=== PATIENT | female | born 1995 | race Caucasian/White ===

== ENCOUNTER → 2016-10-26 | Outpatient (CLI) | payer OTHER ==
[~2016-10-26] MED LIST: BCPILLS PO; ESOM1CAP34 PO; NORGTAB34; ONDA4TAB46 PO
--- NOTE | 2016-10-26 09:42 | DIAGNOSTIC IMAGING REPORT ---
GI W/AIR SMALL BOWEL ROUTINE CLINICAL HISTORY: R11.2 Nausea with vomiting, [id number] COMPARISON STUDY: Abdomen and pelvis CT 10/08/2014. FLUOROSCOPY TIME: 2.9 minutes.. 31 images. FINDINGS: The patient swallowed barium without difficulty. The esophagus is normal in course, caliber, motility. No hiatus hernia. Severe gastroesophageal reflux. No gastric ulcerations. The duodenal bulb and duodenal C sweep are within normal limits. Additional fluoroscopic spot and overhead images of the small bowel were obtained. Contrast reached the colon at the 1 hour time interval. Terminal ileum is normal distensible. Small bowel is normal in course and caliber. No evidence for bowel obstruction. IMPRESSION: 1. Severe gastroesophageal reflux. 2. Normal small bowel follow-through. Electronically signed by: Jace Egan M.D. 10/26/2016 9:41 AM Dictated Date/Time: 10/26/2016 9:38 AM
== END | disposition home or self-care (01) ==
LOC: C.RAD 08:01
PROVIDERS: ATTEND Registered Nurse
DX: R11.2 Nausea with vomiting, unspecified (principal); K21.9 Gastro-esophageal reflux disease without esophagitis

== ENCOUNTER 2017-04-05 15:04 | Emergency (ER) | payer OTHER ==
[~2017-04-05] VITALS: Ht 160 cm; Wt 81.1 kg
[~2017-04-05 15:04] MED LIST changes: -ESOM1CAP34 PO; -NORGTAB34
[2017-04-05 15:06] VITALS: Ht 160 cm; Wt 81.1 kg
[2017-04-05] MEDS ORDERED: SODIUM CHLORIDE 0.9% 1000ML 1,000 ML IV STA (15:34)
[2017-04-05] MEDS ORDERED: ONDANSETRON INJ 2 MG/ML 2 ML VIAL IV STA (15:34)
[2017-04-05] MEDS ORDERED: MoRPHine SULFATE 10 MG/ML CARP/VIAL IV STA (15:34)
[2017-04-05 16:17] LABS: COMPLETE YES; HEMATOCRIT 38.1 % (37-47); IG% 0.1 %; LYMPH % 15.1 %; LYMPH ABS # 1.06 K/uL (1.2-3.4); MEAN CELL VOLUME 84.7 fL (80-100); MEAN CORPUSCULAR HEMOGLOBIN 29.1 pg (25-34); MEAN CORPUSCULAR HGB CONC 34.4 g/dl (32-36); MEAN PLATELET VOLUME 9.5 fL (7.4-10.4); MONO % 4.9 %; NEUT % 78.9 %; PLATELET COUNT 260 K/uL (130-400); WHITE BLOOD COUNT 7.01 K/uL (4.8-10.8)
[2017-04-05 16:18] LABS: URINE APPEARANCE CLEAR (CLEAR); URINE BILIRUBIN NEG (NEG); URINE COLOR YELLOW; URINE NITRITE NEG (NEG); URINE PH 5.5 (4.5-7.5); URINE SPECIFIC GRAVITY 1.022 (1.000-1.030); UROBILINOGEN NEG (NEG)
[2017-04-05 16:29] LABS: MANUAL MICROSCOPIC REQUIRED? NO; REVIEW REQ? NO
--- NOTE | 2017-04-05 16:42 | DIAGNOSTIC IMAGING REPORT ---
GALLBLADDER-ABD LIMITED HISTORY: 21 years-old Female ABDOMINAL PAIN/GI COMPARISON: Gallbladder ultrasound 10/05/2015 TECHNIQUE: Multiple real-time sonography images of the abdominal right upper quadrant were obtained assessing grayscale appearance and color flow FINDINGS: Pancreatic head is slightly obscured by bowel gas. The imaged portions of the pancreas are unremarkable. Liver is within normal limits without focal mass identified. Common bile duct measures 0.4 cm. No biliary ductal dilation is seen. Gallbladder is unremarkable without cholelithiasis or sonographic evidence of acute cholecystitis. Imaged right kidney is unremarkable. IMPRESSION: Unremarkable right upper quadrant ultrasound. No evidence of cholelithiasis or acute cholecystitis. The above report was generated using voice recognition software. It may contain grammatical, syntax or spelling errors. Electronically signed by: John De Oliveira M.D. 04/05/2017 4:41 PM Dictated Date/Time: 04/05/2017 4:40 PM
[2017-04-05 16:51] LABS: POTASSIUM 4.6 mmol/L (3.5-5.1)
[2017-04-05 16:52] LABS: CALCIUM 9.1 mg/dl (8.5-10.1); CREATININE 0.82 mg/dl (0.60-1.20)
--- NOTE | 2017-04-05 16:53 | DIAGNOSTIC IMAGING REPORT ---
CHEST 2 VIEWS ROUTINE HISTORY: 21 years-old Female acute diffuse abdominal pain with nausea and vomiting COMPARISON: None available TECHNIQUE: Frontal and lateral views of the chest FINDINGS: Cardiomediastinal and hilar silhouettes are within normal limits. There is no pneumothorax, pleural effusion, focal airspace consolidation or overt pulmonary edema. The bones appear grossly intact. IMPRESSION: Normal chest radiographs. The above report was generated using voice recognition software. It may contain grammatical, syntax or spelling errors. Electronically signed by: John De Oliveira M.D. 04/05/2017 4:52 PM Dictated Date/Time: 04/05/2017 4:50 PM
[2017-04-05] MEDS ORDERED: ESOM1CAP34 PO (16:55)
[2017-04-05] MEDS ORDERED: NORGTAB34 (16:55)
[2017-04-05] MEDS ORDERED: ONDA4TAB46 PO (17:15)
[2017-04-05 17:28] VITALS: BP 106/67; PULSE 60; TEMP 36.8; O2SAT 99
--- NOTE | 2017-04-07 10:30 | EMERGENCY ROOM VISIT NOTE ---
ED Visit Note First contact with patient: 15:12 Chief Complaint: Upper abdominal pain. History of Present Illness: Ms. Kwong is a 21 year-old female who ambulates into the ED accompanied by her mother complaining of epigastric and right quadrant abdominal pain. Historically patient and mother reports she has been having ongoing severe upper abdominal pain for approximately 5-6 months. She has been in this ED previous with no cause identified. She has been seen by gastroenterology and had an EGD and it was felt most likely related to severe GERD and although she has been treated she has not had full resolution of symptoms. Patient reports a acute onset of epigastric and right upper quadrant abdominal pain that started approximately 10 hours ago. Since that time the pain has been constant but has waxed and waned in intensity. The pain is currently described as sharp. The pain is nonradiating. She rates her discomfort 7/10. She has not identified any aggravating or alleviating factors related to the pain. She reports she has not taken any medications for pain but she has taken her GERD medications; she does report she did take her Zofran for nausea and vomiting and had no relief. Associated with her pain she has been nauseated and vomited and she has had chills but no jareth fever. Patient denies sweats, skin eruptions, skin color changes, upper respiratory tract symptoms, shortness of breath, chest pain, nausea, vomiting, diarrhea, constipation, rectal bleeding, black/tarry stools, urinary symptoms, hematuria, vaginal bleeding, vaginal discharge, back/flank pain. Review of Systems: As noted above in history of present illness. All body systems were reviewed and found to be negative as noted above. Past Medical History: As previously noted and status post tonsillectomy, adenoidectomy. Current Medications: Medications Dose Route/Sig Max Daily Dose Days Date Category Zofran (Ondansetron HCl) 4 Mg Tab 4 Mg PO Q6H PRN 04/05/17 Rx Esomeprazole Magnesium 40 Mg Cap 40 Mg PO DPT 04/05/17 Reported Trinessa (Norgestimate-Ethinyl Estradiol) 1 Tab Tab 04/05/17 Reported Zofran (Ondansetron HCl) 4 Mg Tab 4 Mg PO UD PRN 10/07/14 Reported Allergies to Medications: Penicillin. Social History: Patient is currently employed; she feels safe in her home environment; she denies tobacco and alcohol use. Physical Examination: Vital Signs: Date Time Temp Pulse Resp B/P (MAP) Pulse Ox O2 Delivery O2 Flow Rate FiO2 04/05/17 17:28 36.8 60 15 106/67 99 04/05/17 17:08 60 15 106/67 99 Room Air 04/05/17 16:11 74 04/05/17 15:06 36.8 75 18 134/84 96 Room Air GENERAL: 21-year-old female in moderate distress due to pain, nontoxic-appearing , afebrile and hemodynamically stable. NEUROLOGICAL: Awake, alert and oriented to person, place and time. Answering questions appropriately and following commands. Normal gait. Good hand eye coordination. SKIN: Warm, dry and pink. No soft tissue eruptions or trauma noted. HEENT: Atraumatic and normocephalic. PERRL. Sclera white and conjunctiva pink. Oral cavity moist and pink. Pharynx is nonerythematous or edematous. Speech normal. No lymphadenopathy. Trachea midline. No jugular venous distention. BACK: No tenderness over the bony spine. No CVA tenderness. THORAX: Lungs sounds are clear to auscultation and equal bilaterally with symmetrical chest wall. No wheezing, rales or rhonchi. No crepitus, tenderness , subcutaneous air or deformities noted. HEART: Regular rate and rhythm. No gallops, rubs or murmurs are appreciated. ABDOMEN: Flat and soft with mild tenderness in the epigastrium and moderate tenderness in the right upper quadrant with minimal guarding. Decreased bowel sounds in all quadrants. No rigidity or organomegaly. EXTREMITIES: Moves all extremities well on command and with purpose. All distal neurovascular statuses are intact and equal bilaterally. ED Course: Patient is assessed as noted above. Laboratory Testing: Test 04/05/17 15:15 04/05/17 15:45 Range/Units Urine Color YELLOW Urine Appearance CLEAR CLEAR Urine pH 5.5 4.5-7.5 Urine Specific Stella 1.022 1.000-1.030 Urine Protein NEG NEG Urine Glucose (UA) NEG NEG Urine Ketones NEG NEG Urine Occult Blood NEG NEG Urine Nitrite NEG NEG Urine Bilirubin NEG NEG Urine Urobilinogen NEG NEG Urine Leukocyte Esterase NEG NEG White Blood Count 7.01 4.8-10.8 K/uL Red Blood Count 4.50 4.2-5.4 M/uL Hemoglobin 13.1 12.0-16.0 g/dL Hematocrit 38.1 37-47 % Mean Corpuscular Volume 84.7 80-100 fL Mean Corpuscular Hemoglobin 29.1 25-34 pg Mean Corpuscular Hemoglobin Concent 34.4 32-36 g/dl Platelet Count 260 130-400 K/uL Mean Platelet Volume 9.5 7.4-10.4 fL Neutrophils (%) (Auto) 78.9 % Lymphocytes (%) (Auto) 15.1 % Monocytes (%) (Auto) 4.9 % Eosinophils (%) (Auto) 1.0 % Basophils (%) (Auto) 0.0 % Neutrophils # (Auto) 5.53 1.4-6.5 K/uL Lymphocytes # (Auto) 1.06 1.2-3.4 K/uL Monocytes # (Auto) 0.34 0.11-0.59 K/uL Eosinophils # (Auto) 0.07 0-0.5 K/uL Basophils # (Auto) 0.00 0-0.2 K/uL RDW Standard Deviation 36.6 36.4-46.3 fL RDW Coefficient of Variation 11.9 11.5-14.5 % Immature Granulocyte % (Auto) 0.1 % Immature Granulocyte # (Auto) 0.01 0.00-0.02 K/uL Sodium Level 138 136-145 mmol/L Potassium Level 4.6 3.5-5.1 mmol/L Chloride Level 107 98-107 mmol/L Carbon Dioxide Level 24 21-32 mmol/L Anion Gap 7.0 3-11 mmol/L Blood Urea Nitrogen 6 7-18 mg/dl Creatinine 0.82 0.60-1.20 mg/dl Est Creatinine Clear Calc Drug Dose 110.3 ml/min Estimated GFR () 119.4 Estimated GFR (Non- 103.0 BUN/Creatinine Ratio 7.0 10-20 Random Glucose 82 70-99 mg/dl Calcium Level 9.1 8.5-10.1 mg/dl Total Bilirubin 0.8 0.2-1 mg/dl Direct Bilirubin 0.1 0-0.2 mg/dl Aspartate Amino Transf (AST/SGOT) 14 15-37 U/L Alanine Aminotransferase (ALT/SGPT) 16 12-78 U/L Alkaline Phosphatase 76 45-117 U/L Total Protein 7.1 6.4-8.2 gm/dl Albumin 3.5 3.4-5.0 gm/dl Lipase 122 73-393 U/L Gallbladder Ultrasound: Was reviewed by myself and read by the radiologist and shows an unremarkable ultrasound with no evidence of acute cholecystitis, cholelithiasis, ductal dilatation, liver, pancreatic head and kidney that were unremarkable. Chest X-Rays: Were read by myself and shows no acute infiltrates, effusions or pneumothorax. Normal heart silhouette and bony anatomy. No free air under the diaphragm. Patient was hydrated with normal saline and she received 6 mg of morphine IV for pain and 4 mg of Zofran IV for nausea. Patient was reassessed multiple times during her stay in the emergency department. Patient was offered additional pain medications and refused. Patient's case was reviewed with Dr. Vela; we agreed on diagnostic approach , treatment, disposition and plan. Patient and mother were educated about today's findings and instructed on her treatment plan; they verbalizes understanding and agreement with this plan. Clinical Impression: Upper abdominal pain. Nausea and vomiting. Decision-Making: Initially my differential diagnosis I considered acute cholecystitis, biliary colic, kidney stone, pyelonephritis, hepatitis, pancreatitis, gastritis, GERD exacerbation and other causes. Disposition: Patient was discharged home in stable condition accompanied by her mother; prior to departure she was reassessed and subjectively reported she was feeling better and rated her discomfort 5/10. Plan: Patient was encouraged to continue her current medications as prescribed. Patient was encouraged to use 650 mg of acetaminophen every 6 hours as needed for pain and her prescription for Zofran. Patient was encouraged to stay well-hydrated with increased clear fluids. Patient was encouraged to avoid stomach irritants. Patient was encouraged to follow-up with her PCP, her hydraulic strainer operator and see if they felt surgery should be considered for evaluation of her pain. Patient was encouraged return the ED for worsening/uncontrolled pain, worsening vomiting, bloody vomitus, fevers or any new/concerning symptoms.
== END 2017-04-05 17:29 | disposition home or self-care (01) ==
LOC: C.EDB 15:06 → C.EDA 17:29
DX: R10.11 Right upper quadrant pain (principal); R10.13 Epigastric pain; R11.2 Nausea with vomiting, unspecified; Z79.3 Long term (current) use of hormonal contraceptives

== ENCOUNTER → 2017-08-21 | Outpatient (CLI) | payer OTHER ==
[~2017-08-21] MED LIST changes: -BCPILLS PO; +ESOM1CAP34 PO; +NORGTAB34
== END | disposition home or self-care (01) ==
LOC: C.LABSPEC 13:32
PROVIDERS: ATTEND Obstetrics & Gynecology
DX: Z01.419 Encounter for gynecological examination (general) (routine) without abnormal findings (principal)

== ENCOUNTER 2024-07-09 08:24 | Inpatient (IN) ==
[2024-07-09] MEDS ORDERED: NON-FORMULARY MEDICATION (Doxylamine Succinate [Unisom (Doxylamine)] 25 mg Tablet) PO PRN (08:41)
--- NOTE | 2024-07-09 08:50 | History & Physical Report ---
Date of Service July 09, 2024 Assessment & Plan (1) Encounter for pre-operative examination: (2) Pulmonary embolism: (3) History of 2 sections: (4) Uterine contractions at greater than 20 weeks of gestation: Plan: patient is a 28-year-old -0-1-2 at 39 weeks of gestation with history of prior 2 C-sections coming in with regular painful contractions, and early labor, Vital signs stable afebrile, heart rate reassuring, h/o PE, on heparin, last dose last night, Plan to admit, monitor, labs, start IV fluids, prepare for repeat , SCD's, Start Lovenox postop Patient understands C section is a major surgery, with risks including but not limited to bleeding , infection, injury to surrounding organs like bowels, bladder, ureters, adhesions, scarring, wound infection, blood cloths in legs/ lungs, longer recovery. All questions were answered. She signed an informed consent. History of Present Illness Primary Care Provider: HALLIE Benitez Patient is a 28-year-old -0-1-2 at 39 weeks of gestation who has been feeling contractions since last night, she woke up with them around 3 AM when they were every 5 minutes and then they became every 3 minutes since 5 AM. They have been very uncomfortable and she has to stop talking when they come. She denies leakage of fluid or vaginal bleeding. She reports good movements. 1. History of 2 prior C-sections due to arrest of descent and macrosomia, first baby was 9 pounds 13 ounces and the second baby was a repeat and 9 pound 8 ounces, she is scheduled repeat for July 14. 2. History of PE in 2021 used anticoagulant for 3 months and then stopped. She was now on prophylactic dose Lovenox and Has been on heparin 5000 units twice a day since her 6 weeks, will be on Lovenox after delivery for 6 to 8 weeks. 3. Rh-, received RhoGAM at 28 weeks. 4. Asthma, mild uses albuterol inhaler as needed when she has cold. Allergies Allergy/AdvReac Type Severity Reaction Status Date / Time morphine Allergy Severe Difficulty Verified 07/03/24 12:01 Breathing shellfish derived Allergy Severe Anaphylaxis Verified 07/03/24 12:01 grass pollen Allergy Intermediate Hives Verified 07/03/24 12:01 Penicillins Allergy Intermediate Hives Verified 07/03/24 12:01 amoxicillin Allergy Mild rash Verified 07/03/24 12:01 coconut Allergy Mild Gastrointestinal Verified 07/03/24 12:01 Upset adhesive tape AdvReac Intermediate sensitive Verified 07/03/24 12:02 skin tobacco Allergy Severe Difficulty Uncoded 07/03/24 12:01 Breathing Home Medications Medication Instructions Recorded Confirmed Type acetaminophen 500 mg tablet 500 - 1,000 mg PO Q6H PRN Pain 02/21/20 07/03/24 History (Tylenol Extra Strength) vit no.95-ferrous 1 tab PO HS 06/06/24 07/03/24 History fumarate 28 mg-folic acid 800 mcg tablet () doxylamine succinate 25 mg tablet 12.5 mg PO HS PRN Sleep 07/03/24 07/03/24 History (Unisom (doxylamine)) heparin (porcine) 5,000 unit/mL 5,000 unit subcut Q12H 07/03/24 07/03/24 History injection syringe magnesium oxide 400 mg PO HS 07/03/24 07/03/24 History Patient History Medical History (Updated 07/09/24 @ 08:53 by Doris Scanlon MD) History of COVID-19 04/2024>symptoms resolved GERD (gastroesophageal reflux disease) PTSD (post-traumatic stress disorder) Migraines Pulmonary embolism 12/2021: tx with lovenox x3 months; had testing which was normal. Was Rx lovenox during early stage of and now taking heparin; follows with with [facility] Hiatal hernia Spondylolisthesis Spondylisthesis Chronic gastritis Elevated C-reactive protein Surgical History S/P pilonidal cyst excision History of esophagogastroduodenoscopy (EGD) History of tonsillectomy and adenoidectomy History of tooth extraction S/P section x 2 S/P cholecystectomy laparoscopic Family History Father Alcoholism Suicide completion Grandfather (Paternal) Diabetes Aunt Stroke Other No family history of adverse response to anesthesia Denies family history of Ovarian cancer Breast cancer Colorectal cancer Social History Smoking Status: Former smoker Tobacco Type: E-cigarettes / Vaping Second Hand Exposure: Yes (as a child); Do You Dip or Chew Tobacco: No; Hx Alcohol Use: No Hx Substance Use: No Preferred Language: Serbian Testing And Regulating Chief Required: No Beliefs That Will Affect Care: None marital status: Current Living Situation: Family Feels Safe at Home: Yes Assistive Devices: None OB History She had 2 prior C-sections 3 and 5 years ago, uncomplicated. For somas due to arrest of descent and macrosomia second 1 was repeat . 1 SAB Physical Exam Constitutional: WD/WN, vitals as above well developed, well nourished and + acute distress Gastrointestinal (Abdomen): normal bowel sounds, soft, nontender, no hepatosplenomegaly (Gravid) Genitourinary: normal external appearance OB Exam Abdomen: + vertex Manual OB Exam: + cervical dilation 1 cm, + cervical effacement 30% and + station high OB Exam Monitor Tracing: + external uterine monitor used and + category I Results & Data Vital Signs (Past 12 Hours) Vital Signs Pulse BP 07/09/24 08:31 86 144/70 H Code Status & VTE Plan VTE Prophylaxis Plan VTE Prophylaxis will be ordered: Yes (2) Pulmonary embolism Acute cor pulmonale presence: unspecified Chronicity: chronic Pulmonary embolism type: unspecified Qualified Code(s): I27.82 - Chronic pulmonary embolism
[2024-07-09] MEDS: ACETAMINOPHEN 500 MG TAB PO SCH (09:07)
[2024-07-09] MEDS: LACTATED RINGER'S 1,000 ML IV SCH (09:07)
[2024-07-09 09:08] LABS: Hematocrit (blood only) 37.7 % (37.0-47.0); Hemoglobin 13.2 g/dl (12.0-16.0); Mean Corpuscular Hemoglobin 29.7 pg (25.0-34.0); Mean Corpuscular Volume 84.9 fL (80.0-100.0); Mean Platelet Volume 10.3 fL (9.4-12.4); Platelet Count 198 K/uL (130-400); RDW Coefficient of Variation 12.9 % (11.5-14.5); RDW Standard Deviation 39.1 fL (36.4-46.3); Red Blood Count 4.44 M/uL (4.20-5.40); White Blood Count 7.88 K/ul (4.8-10.8)
[2024-07-09 09:22] LABS: Albumin Globulin Ratio 1.2 (0.9-2); Albumin Level 3.5 gm/dl (3.4-5.0); BUN Creatinine Ratio 12.7 (10-20); Bilirubin,Total 0.8 mg/dl (0.2-1.0); Calcium 9.1 mg/dl (8.6-10.3); Creatinine Clr Calc Pharmacy 133.7 ml/min; Potassium 4.2 mmol/L (3.5-5.1); Total Protein 6.5 gm/dl (6.0-8.3)
[2024-07-09] MEDS ORDERED: SODIUM CHLORIDE 0.9% 100 ML IV PRN (09:51)
[2024-07-09] MEDS ORDERED: SODIUM CHLORIDE 0.9% 50 ML IV PRN (09:51)
[2024-07-09] MEDS: CITRIC ACID/SODIUM CITRATE 15 ML UDC PO SCH (09:55)
[2024-07-09] MEDS: ceFAZolin 2000MG 2,000 MG/15 ML SYR IV SCH (09:58)
[2024-07-09] MEDS ORDERED: MoRPHine SULFATE PF 1 MG/ML 10 ML AMP/VIAL ONE (10:02)
[2024-07-09] MEDS ORDERED: ACETAMINOPHEN 1,000 MG/100 ML VIAL IV PRN (10:28)
[2024-07-09] MEDS ORDERED: NALOXONE HCL 0.08 MG in SYRINGE 1.8 ML IV PRN (10:28)
[2024-07-09] MEDS ORDERED: NALOXONE HCL 0.4 MG/1 ML VIAL/CARP IV PRN (10:28)
[2024-07-09] MEDS ORDERED: oxyCODONE HCL IR 5 MG TAB (IMMEDIATE RELEASE) PO PRN (10:28)
[2024-07-09] MEDS ORDERED: METOCLOPRAMIDE HCL 10 MG in SODIUM CHLORIDE 0.9% 50 ML IV PRN (10:28)
[2024-07-09] MEDS ORDERED: NALOXONE HCL 1 MG in SODIUM CHLORIDE 0.9% 1,000 ML IV PRN (10:28)
[2024-07-09] MEDS ORDERED: HYDROmorphone INJ 0.5 MG/0.5 ML SYR IV PRN (10:28)
[2024-07-09] MEDS ORDERED: diphenhydrAMINE 50 MG/ML VIAL IV PRN (10:28)
[2024-07-09] MEDS ORDERED: NALBUPHINE HCL INJ 10 MG/ML AMP IV PRN (10:28)
[2024-07-09] MEDS ORDERED: MEPERIDINE HCL 25 MG/ML CARP/VIAL IV PRN (10:28)
[2024-07-09] MEDS ORDERED: ePHEDrine sulfate 50 MG/ML AMP IV PRN (10:28)
[2024-07-09] MEDS ORDERED: NO NARCOTICS OR SEDATIVES SCH (10:30)
[2024-07-09] MEDS: OXYTOCIN 30 UNITS/1003ML LR IV ONE (10:35)
[2024-07-09] MEDS ORDERED: PHENYLEPHRINE 100MCG/ML 5ML SYR ONE ×2 (10:35→10:39)
[2024-07-09] MEDS ORDERED: OXYTOCIN 10 UNITS/ML VIAL ONE (10:39)
[2024-07-09] MEDS ORDERED: CALCIUM CARBONATE 500 MG CHEWABLE TAB PO PRN (11:54)
[2024-07-09] MEDS: KETOROLAC 30 MG/ML VIAL IV PRN (11:54)
[2024-07-09] MEDS ORDERED: BENZOCAINE 20% SPRY 85 APPLN/85 GM CAN EXT PRN (11:54)
[2024-07-09] MEDS ORDERED: SENNA 8.6 MG TAB PO PRN (11:54)
[2024-07-09] MEDS ORDERED: HYDROCORTISONE ACETATE 25 MG SUPP PR PRN (11:54)
[2024-07-09] MEDS ORDERED: KETOROLAC 30 MG/ML VIAL IV SCH (12:00)
--- NOTE | 2024-07-09 12:12 | Operative Report ---
Post Operative Report Pre & Post Diagnosis Operation Date: 07/09/24 10:00 Pre-Op Diagnosis: Repeat Caesarean Section Times Two; Early Labor with Regular Contractions Post-Op Diagnosis: Same;Delivery of a live male child at 1032 I identified the patient and participated in the time-out.: Yes Procedure Operation Date: 07/09/24 10:00 Actual Procedures p Repeat Section in LD(Bilateral) - Doris Scanlon MD Surgeon Doris Scanlon MD Ic Design Engineer Dr Rowell Quantitative Blood Loss (QBL) 460 ml Findings Consistent with Post-Op Diagnosis Baby was a viable male infant delivered in cephalic presentation at 10:32 AM Apgars were 8/9,, weight was 384 0 g. Maternal findings: there was some scarring of the fascia in the middle which was expected from prior surgeries, lower uterine segment was thin but intact, otherwise normal uterus fallopian tubes and ovaries. Specimens Placenta and cord Drains Lynn catheter Anesthesia Type Spinal Complications none Indications patient is a 28-year-old G4P-0-1-2 at 39 weeks of gestation who presented to labor and delivery with regular contractions, early labor, history of prior 2 C-sections and opted for repeat . Description of Procedure Patient was taken to operating room where a spinal anesthesia was given without difficulty. She was placed in dorsal supine position with a leftward tilt. She was prepared and draped in usual sterile fashion. A financial skin incision was made and carried through to the underlying layer of fascia with the Bovie. Fascia was incised in the midline and incision was extended laterally with the help of Matta scissors. Then the upper aspect of the fascial incision was grasped with 2 Oliver clamps elevated the underlying rectus muscles were dissected off sharply with Matta scissors. Same thing was done on the lower incision. Then the muscles were in the midline, peritoneum was identified grasped with 2 pickups and entered sharply with Metzenbaum scissors. Peritoneal incision was extended superior and inferiorly with good visualization of the bladder. The bladder blade was inserted. Vesicouterine peritoneum was i dentified, grasped with pickups and entered sharply with Metzenbaum scissors, bladder flap was created digitally and bladder blade was reinserted. Uterus was incised in transverse fashion, incision was extended laterally, membranes were ruptured and clear fluid was obtained. Baby's head was delivered without difficulty, followed by shoulders and body with minimal traction without difficulty. There was a nuchal cord around the neck and shoulder once, it was reduced. Mouth and nose were suctioned there was dried on the field he was vigorously crying and moving. The cord was clamped times and cut at 1 minute delay and then the infant was handed off to the pediatric team. Then the placenta was delivered manually as intact and complete. Uterus was externalized and cleared of all clots and debris's. Lower uterine segment was thin but intact. Uterine incision was repaired with 0 Vicryl in a running locked fashion, second umbricating layer was placed with the same suture in running locked fashion. Excellent hemostasis achieved. Cul-de-sac and the pelvis was irrigated with warm normal saline and suctioned. Incision was checked to be hemostatic again. Uterus was returned to the abdomen, parietal peritoneum was reapproximated with 3-0 Vicryl in a running fashion and the muscles were reapproximated in the same suture in a running fashion. All of the fascia and rectus muscles were hemostatic. Rectus fascia was reapproximated with 0 Vicrylin running fashion. Subcuticular fat tissue was brought together with 2-0 Vicryl in a running fashion, skin was closed with 4-0 Monocryl in a subcuticular cuticular fashion. The mom and baby tolerated procedure well. Sponge needle instrument count was correct x3. She was given 2 g of cefazolin before surgery. No complications happened, I was present during whole procedure. My expanded function dental assistant was needed for retraction, hemostasis and aid during delivery of infant. I attest to the content of the Intraoperative Record and any orders documented therein. Any exceptions are noted below.
[2024-07-09] MEDS: OXYTOCIN 30 UNITS/LR 1,003 ML IV SCH (12:30)
--- OUTSIDE RECORDS SUMMARY | 2024-07-09 13:30 | External Medical Summary | Summary of Care ---
Author Name Unknown Organization [facility] Address [address] [place] [address] Phone [phone] Care Team Providers Care Engineering Lecturer Name Role Phone Unavailable Primary Care Provider Unavailabl e Reason for Visit * Reason Comments Return Visit Encounter Details Date Type Department Care Team (Late st Contact Info) Description 07/03/2024 10:45 AM EST Office Visit Gynecology/Obstetric s [facility] [address] [place] [address] Lissa Henning CRNP [address] [place] [address] Supervision of high-risk , unspecified trimester*; History of pulmonary embolism; Previous delivery affecting ; H/O migraine during ; Rh negative status during in third trimester; Depression complicating , antepartum; H/O macrosomia in infant in prior , currently ; History of respiratory syncytial virus (RSV) vaccination Allergies Active Allergy Reactions Criticality Noted Date Comments Amoxicillin Low 12/19/2005 Rash Food (See Comments) Medium 05/23/2018 Coconut: GI Reaction, Urticaria, GI Reaction, Urticaria Morphine Medium 04/19/2017 Chest and throat "tightness" Shellfish-Derived Products Anaphylaxis High 12/05/19 24 Reports reaction only when Tobacco Medium 05/27/2023 Shortness of breath documented as of this encounter (statuses as of 07/03/2024) Medications triamcinolone acetonide (ARISTOCORT) 0.025 % creamIndications :Eczema, unspecified type Apply topically to affected area 2 times a day. To affected area. 80 g 1 9 Active Pre-Sarah Formula Oral Tablet Take 1 Tablet by mouth in the morning. Active Enoxaparin Sodium 40 MG/0.4ML Injection Solution Prefilled Syringe (Lovenox)Indicat ions:Less than 8 weeks gestation of ,Histor y of pulmonary embolism Inject 40 mg under the skin in the morning. 90 mL 2 4 Active Additional Information Patient not taking.Reported on 06/22/2024 Doxylamine Succinate (Sleep) 25 MG Oral Tablet (Unisom SleepTabs) Take 1 Tablet by mouth at bedtime as needed. Active Magnesium 250 MG Oral Tablet Take 1 Tablet by mouth in the morning. Active Albuterol Sulfate HFA 108 (90 Base) MCG/ACT Inhalation Aerosol Solution Inhale 2 Puffs by mouth in the morning and 2 Puffs at noon and 2 Puffs in the evening and 2 Puffs before bedtime. 18 g 3 4 Active Cetirizine HCl 10 MG Oral CapsuleIndicatio ns:Facial swelling,Salivar y gland disorder Take 1 Capsule by mouth in the morning. 30 Capsule 4 Active Heparin Sodium (Porcine) 5000 UNIT/0.5ML Injection Solution Prefilled SyringeIndicatio ns:History of pulmonary embolism Inject 0.5 mL under the skin in the morning and 0.5 mL before bedtime. 60 mL 4 Active Heparin Sodium (Porcine) PF 5000 UNIT/0.5ML Injection SolutionIndicati ons:History of pulmonary embolism Inject 0.5 mL under the skin in the morning and 0.5 mL before bedtime. 60 mL 4 Active documented as of this encounter (statuses as of 07/03/2024) Active Problems Problem Noted Date Diagnosed Date History of respiratory syncytial virus (RSV) vac cination 05/27/2024 Overview (05/27/2024): 05/27/24 H/O macrosomia in infant in prior , currently 12/10/2023 Overview (12/10/2023): 2019 weighed 4451 grams at term via C/S Assessment & Plan (12/10/2023 9:22 AM EDT): CONSIDERATIONS: Explained that macrosomia is defined as a weight of greater than 4000 grams. A woman who previously has given to an infant weighing more than 4,000 g is 5-10 times more likely to deliver an infant weighing more than 4,500 g than a woman without such a history. Discussed that a variety of factors predispose a to macrosomia, including preexisting maternal diabetes, uncontrolled gestational diabetes, maternal prepregnancy obesity, excessive gestational weight gain, maternal interpregnancy weight gain, a prior macrosomic , postterm , and maternal nonsmoking status. An accurate diagnosis of macrosomia can be made only by weighing the after delivery. The diagnosis of macrosomia is imprecise. Methods used to predict weight include assessment of maternal risk factors, clinical examination, and ultrasound measurement of the fetus. For suspected macrosomia, the accuracy of estimated weight using ultrasound biometry is no better than that obtained with clinical palpation. RECOMMENDATION: Recommend performing gestational diabetes mellitus screen at time of first visit and repeat again at 26-28 weeks if early screen is normal. Monitor maternal weight gain throughout . Consider referral for a nutrition consult. Consider growth scan at 36-37 weeks if LGA persists. Depression complicating , antepartum Overview (12/10/2023): Anxiety/depression/PTSD No current medication Currently involved in outpatient therapy Reports a stable mood in . Denies any suicidal or homicidal ideation. Reports she has a good support system at home. Assessment & Plan (12/10/2023 9:15 AM EDT): CONSIDERATIONS: Untreated maternal anxiety and depression may be associated with an increased risk of multiple poor obstetrical outcomes including miscarriages, low weight, and delivery. Women with a history of anxiety or depression are at risk for recurrence both during and/or the period. Studies of first-trimester SSRI exposure do not demonstrate consistent data to support an increased risk for structural malformations. Anti-anxiety or depression medications have been associated with transient effects (withdrawal syndrome). RECOMMENDATIONS: Mental illness can and should be treated during when the benefits of treatment outweigh potential risks. Referral to behavioral health services as clinically indicated. Previous delivery affecting 0 12/05/2023 Overview (12/05/2023): C/s x2. Desires repeat Assessment & Plan (03/02/2024 11:24 AM EDT): -Prior x2, planning repeat CD Supervision of high-risk , unspecified trimester 12/05/2023 Assessment & Plan (03/02/2024 11:16 AM EDT): - low risk QNatal H/O migraine during 12/05/2023 Overview (12/05/2023): History of hemiplegic migraines. Currently taking magnesium. Follows with neurology. Assessment & Plan (12/10/2023 9:05 AM EDT): Considerations: The occurrence of migraine is modulated by fluctuations in estrogen levels. Most women (60 to 70 percent) with a history of migraine report improvement over the course of , approximately 5 percent describe worsening, and the remainder report no change Indications for neuroimaging and lumbar puncture are similar to those in non adults. Reviewed relief measures for headaches in include adequate hydration, small frequent meals, and Tylenol with caffeinated beverage as needed. Advise limiting Tylenol to no greater than 3000 mg per day. Recommendations: Recommend evaluation for Preeclampsia if greater than 20 weeks gestation. Recommend follow up with primary care provider or Neurology consult if headache symptoms worsen No contraindications for taking Fioricet as needed for severe headaches. Discussed that supplementation with magnesium 400 mg twice daily, co-q10 100 mg three times daily, and riboflavin (vitamin B2) 400 mg once daily may decrease the frequency of migraine headaches. These can be obtained over the counter at any pharmacy and are not contraindicated in . Avoid or monitor effects of possible headache triggers: Chocolate Cheese Deli meats Artificial sweeteners Rh negative status during 12/05/2023 Overview (12/05/2023): Will need Rhogam Migraine variant 05/17/2023 History of pulmonary embolism 05/17/2023 Overview (12/13/2023): Unprovoked pulmonary embolism in 2021. Currently managed with prophylactic Lovenox by hematology Per hematology note: "She had a thrombophilia workup done including protein C, protein S, antithrombin 3 all were within normal limit. Factor 5 Leiden and prothrombin gene mutation were negative. Anticardiolipin antibody for IgG, IgA and IgM were normal. Initially she had elevated IgM beta 2 microglobulin level in April 2022 but subsequently it was repeated in July 2022 and was normal." We recommend prophylactic anticoagulant therapy during antepartum period of any subsequent pregnancies. Prophylactic dose anticoagulation is recommended for 6-8 weeks . Recommend switching from enoxaparin to heparin therapy at 36 weeks Prophylactic anticoagulation therapy should continue for 6 weeks . Assessment & Plan (03/02/2024 11:23 AM EDT): -Compliant with prophylactic lovenox -Anticipate transition to heparin in 3rd trim Assessment & Plan (12/10/2023 9:10 AM EDT): CONSIDERATIONS: Explained that women who have a history of VTE in a previous , a history of VTE while taking estrogen-containing contraception or an unprovoked VTE with no hypercoagulable state may have as high as a 6% risk for developing VTE in a subsequent . RECOMMENDATIONS: We recommend prophylactic anticoagulant therapy during antepartum period of any subsequent pregnancies. Prophylactic dose anticoagulation is recommended for 6-8 weeks . Recommend switching from enoxaparin to heparin therapy at 36 weeks to decrease risks for hemorrhagic complications with delivery and to permit induction of neuraxial anesthesia during L&D. The safety of neuraxial anesthesia in patients receiving unfractionated heparin doses of heparin 10,000 units or greater every 12 hours is unknown and clearance can be verified by an aPTT level. Recommend anesthesia consult. Patients should withhold their injections at the onset of labor. Anticoagulation therapy should be resumed 4-6 hours after uncomplicated vaginal delivery and 6- 12 hours after an uncomplicated section. Pneumatic compression devices are recommended for all patients in labor or during delivery for prevention of VTE and should remain in place until patient is ambulatory and anticoagulation has been restarted. Prophylactic anticoagulation therapy should continue for 6 weeks . We therefore recommend thrombophilia workup if not already done (to include Factor V Leiden mutation, Prothrombin gene mutation, free Protein S activity, functional Protein C activity, Antithrombin III activity, IgG and IgM Anticardiolipin antibodies, IgG and IgM anti beta2 glycoprotein antibodies, Lupus anticoagulant). (Completed and negative) Flu vaccine need 05/17/2023 Current every day nicotine vapor product user Obesity, Class I, BMI 30.0-34.9 (see actual BMI) 05/14/2019 Well adult exam 02/08/2015 Tuberculosis screening 02/08/2015 Estimated Date of Delivery Comme nts Yes 07/16/2024 Based on last me nstrual period of 10/10/2023 (Exact Date) documented as of this encounter (statuses as of 07/03/2024) Resolved Problems Problem Noted Date Diagnosed Date Resolved Date 16 weeks gestation of 01/28/2024 05/08/2024 Elevated blood pressure affe cting , antepartum 12/10/2023 05/08/2024 Overview (12/10/2023): Denies history of chronic hypertension BP Readings from Last 10 Encounters: 12/05/23 114/64 11/11/23 137/81 06/18/23 119/78 05/27/23 110/62 05/17/23 112/66 05/11/23 114/64 07/16/19 102/64 05/14/19 118/74 03/07/18 110/80 07/09/17 100/68 Assessment & Plan (12/10/2023 9:14 AM EDT): Recommend continue to monitor blood pressure. Two or more elevated blood pressure (>130/80) prior to or 20 weeks gestation supports the diagnosis of chronic hypertension. If diagnosis is made then please referral back to [facility] Routine child health exam 10/21/2007 documented as of this encounter (statuses as of 07/03/2024) Immunizations Name Administration Dates Next Due DTaP Dipth/Tet/Acell Pertussis (Infanrix), Peds 09/05/2001,02/22/1998,02/24/1997,12/25,1996 H1N1 2009 Influenza, Intranasal 06/16/2009 HEP A - Hepatitis A (Adult > 18 yrs) 05/14/2019 HPV Vaccine, 4-Valent 05/26/2008,01/22/2008,10/10 Hepatitis B, 0-19 yrs 06/22/1997,1996,08/12 IPV - Polio Virus Vaccine (Inact) 2003,02/22/1998,1996,10/23 Influenza Vaccine, Live, Int ranasal, Trivalent (Flumist) 05/14/2013,05/03/2012 MMR - Measles/Mumps/Rubella Vaccine 09/12/2000,0 11/26/1997 Meningococcal Conjugate Vacc ine (Menactra/Menveo) 06/11/2013,10/21/2007 PPD 02/06/2024,,05/14/2019,02/18,02/08/2015,04/06/2014 RSV Vac., Bivalent, Perfusio n F, Pf,0.5 Ml (Abrysvo) 05/27/2024 Seasonal Influenza Vac., MDV , IM, 0.5 mL (Fluzone) 06/03/2014,05/11/2011,06/05/2010,07/04,05/26/2008,06/05/2007 Seasonal Influenza Virus Vac cine, Unspecified Formulation 05/28/2018 Seasonal Influenza, PF, 6 M & above, IM , (FluLaval or Fluzone) 05/17/2023,05/14/2019,06/14/2017 Seasonal Influenza, Quadriva lent, No Preserve, IM 05/21/2016 Seasonal Influenza, Trivalen t, (IIV3), PF, (Fluzone) 04/24/2024 TDAP (age 10 and older)(Boostrix) 10/12/2018, TDAP, Age 7 and older, IM (Adacel) 04/24/2024, Varicella Vaccine (Chicken Pox) 11/04/2008,02/04 documented as of this encounter Social History Tobacco Use Types Packs/Day Years Used Date Smoking Tobacco: Never Smokeless Tobacco: Never Alcohol Use Standard Drinks/Week Comments Never 0 (1 standard drink = 0.6 oz pur e alcohol) AUDIT-C Answer Date Recorded Frequency of Alcohol Consumption Monthly or less 05/14/2019 Average Number of Drinks 1 or 2 019 Frequency of Binge Drinking Not on file 10/2018 PHQ-2 Answer Date Recorded PHQ-2 Score 0 05/14/2019 Hunger Vital Sign Answer Date Recorded Within the past 12 months, y ou worried that your food would run out before you got the money to buy more. Never true 02/10/20 24 Within the past 12 months, t he food you bought just didn't last and you didn't have money to get more. Never true 02/10/2024 Moran Depression Scale Answer Date Recorded Moran Depression Scale Total 14 05/27/2024 The thought of harming myself has occurred to me . Never 05/27/2024 Childcare Answer Date Recorded Do you feel overwhelmed with taking care of a child, family member or friend? No 02/10/2024 Does your family need help f inding childcare? (Household - for ages 0-17 years) Not on file 02/10/2024 Clothing Answer Date Recorded Have you been unable to get clothing when it was really needed? No 02/10/2024 Is your family able to get c lothes or diapers when needed? (Household - for ages 0-17 years) Not on file 02/10/2024 Personal Safety Answer Date Recorded Do you feel unsafe or have concerns for your saf ety? No 02/10/2024 Do you have concerns for you r family's safety? (Household - for ages 0-17 years) Not on file 02/10/2024 Utilities Answer Date Recorded Do you have trouble paying y our heating, water, or electric bill? No 02/10/2024 Is your family able to pay t he heat, water, or electric bill? (Household - for ages 0-17 years) Not on file 02/10/2024 Does your family have access to good internet? (Household - for ages 0-17 years) Not on file 02/10/2024 Employment Status Answer Date Recorded Are you unemployed or without regular income? Ye s 02/10/2024 Does the household have a re gular source of income? (Household - for ages 0-17 years) Not on file 02/10/2024 Social Connections Answer Date Recorded How often do you feel lonely or isolated from th ose around you? Rarely 02/10/2024 Financial Resource Strain Answer Date R ecorded Do you have any trouble payi ng for your medications, or do you think you might in the future? No 02/10/2024 Does your family have troubl e paying for medicine? (Household - for ages 0-17 years) Not on file 02/10/2024 Transportation Needs Answer Date Record ed READ ONLY Do you have troubl e getting a ride to medical visits or work? Never True 02/10/2024 Does your family have a hard time getting a ride to doctors visits? (Household - for ages 0-17 years) Not on file 02/10/2024 Has lack of transportation k ept you from medical appointments, meetings, work, or from getting things needed for daily living? Check all that apply. No 02/10/2024 Do you (or your family) have trouble finding or paying for a ride (transportation)? (Household - for ages 0-17 years) Not on file 02/10/2024 Housing Stability Answer Date Recorded Do you currently live in a s helter or have no steady place to sleep at night? No 02/10/2024 READ ONLY Do you think you a re at risk of becoming homeless? No 02/10/2024 Does your family worry about paying for your home or becoming homeless? (Household - for ages 0-17 years) Not on file 0 02/10/2024 Are you homeless or worried that you might be in the future? No 02/10/2024 Are you (or your family) kenyatta eless or worried that you might be in the future? (Household - for ages 0-17 years) Not on file Food Insecurity Answer Date Recorded Do you need food for this week? No 02/10/2024 Are you able to get enough f ood for your family? (Household - for ages 0-17 years) Not on file 02/10/2024 Does your family need food t his week? (Household - for ages 0-17 years) Not on file 02/10/2024 Do you always have enough fo od for your family? (Household - for ages 0-17 years) Not on file 02/10/2024 Estimated Date of Delivery Comme nts Yes 07/16/2024 Based on last me nstrual period of 10/10/2023 (Exact Date) Sex and Gender Information Value Date Recorded Sex Assigned at Female 05/03/2023 8:55 AM EDT Legal Sex Female 6:24 AM EST Gender Identity Female 05/03/2023 8:55 AM EDT Sexual Orientation Bisexual 05/03/2023 8: 55 AM EDT Occupation Industry Job Start Date Job End Date student Not on file Not on file Not on file documented as of this encounter Last Filed Vital Signs Vital Sign Reading Time Taken Comments Blood Pressure 118/74 07/03/2024 10:34 AM EST Pulse - - Temperature - - Respiratory Rate - - Oxygen Saturation - - Inhaled Oxygen Concentration - - Weight 99.3 kg (219 lb) 07/03/2024 10:34 AM EST Height 160 cm (5' 3") 07/03/2024 10:34 AM EST Body Mass Index 38.79 07/03/2024 10:34 AM EST documented in this encounter Progress Notes * Lissa Henning CRNP - 07/03/2024 10:48 AM EST 38w1d C/o ongoing back and pelvic pain. States she can't go to the chiropractor because of back issues. PT in last wasn't overly helpful, and feels that being less than 2 weeks from delivery withthis baby won't be particularly helpful either. Discussed contraception. Not planning BTL with repeat c/s. She states that she and her are , and he is living in [place]. He doesn't come here often, and she isn't planning to be sexuallyactive with him. Baby is moving well. Having some contractions. Was at the hospital after her last visit. No bleeding or LOF. HALLIE Gunter documented in this encounter Nursing Notes * Meagan Wyman LPN - 07/03/2024 10:35 AM EST 38w1d Lower pelvic pressure/ pain documented in this encounter Plan of Treatment Upcoming Encounters Date Type Department Care Team (Late st Contact Info) Description 07/22/2024 11:30 AM EST Office Visit Gynecology/Obstetrics [facility] [address] [facility] [place] [address] Lissa Henning CRNP [address] [place] [address] 09/07/2024 10:00 AM EST Laboratory Laboratory, [facility] [address] [facility] [place] [phone] [facility] [address] [facility] [place] [address] 09/14/2024 2:00 PM EST Office Visit Hematology/Oncology [facility] [address] [place] [phone] Beatrice Larkin MD [address] [facility] [place] [address] Health Maintenance Due Date Last Done Comments Depression Monitoring 05/14/2020 05/14/2019 COVID-19 Vaccine ( season) 2024 Pap Smear 05/11/2026 05/11/2023, 02/11/2019 DTap/Tdap Vaccines (10 - Td or Tdap) 04/24/2034 04/24/2024, 10/12/2018, 06/11/2013, Additional history exists Hepatitis B Vaccine Completed 06/22/1997, 1996, 1996 HPV (Gardasil) Vaccine Completed 8, 01/22/2008, 10/21/2007 MENINGOCOCCAL (MENACTRA/MENVEO) Completed 06/11/2013, 10/21/2007 Gonorrhea / Chlamydia Screen Discontinued 12/05/2023, 07/25/2020, 02/10/2019, Additional history exists Influenza Vaccine (FLU shot) Completed 04/24/2024, 05/17/2023, 05/14/2019, Additional history exists Pneumococcal Vaccine: Pediatrics (0 to 5 Years) and At-Risk Patients (6 to 64 Years) Aged Out No longer eligible based on patient's age to complete this topic documented as of this encounter Medical Devices Not on filedocumented as of this encounter Visit Diagnoses Diagnosis History of pulmonary embolism- Primary Personal history of pulmonary embolism H/O migraine during Supervision of other high-risk Elevated blood pressure affecting , antepartum Depression complicating , antepartum Mental disorders of mother, antepartum H/O macrosomia in infant in prior , currently with other poor obstetric history Supervision of high risk , antepartum, first trimester 8 weeks gestation of state, incidental Obesity, Class I, BMI 30.0-34.9 (see actual BMI)- Primary Obesity, unspecified History of pulmonary embolism Personal history of pulmonary embolism H/O migraine during Supervision of other high-risk Depression complicating , antepartum Mental disorders of mother, antepartum H/O macrosomia in in prior , currently with other poor obstetric history Supervision of high-risk , unspecified trimester Encounter for anatomic survey 20 weeks gestation of state, incidental Previous delivery affecting Previous delivery, unspecified as to episode of care or not applicable Supervision of high-risk , unspecified trimester- Primary History of pulmonary embolism Personal history of pulmonary embolism Previous delivery affecting Previous delivery, unspecified as to episode of care or not applicable H/O migraine during Supervision of other high-risk Rh negative status during in third trimester Depression complicating , antepartum Mental disorders of mother, antepartum H/O macrosomia in infant in prior , currently with other poor obstetric history History of respiratory syncytial virus (RSV) vaccination documented in this encounter
[2024-07-09] MEDS: ONDANSETRON INJ 2 MG/ML 2 ML VIAL IV PRN (13:56)
[2024-07-09] MEDS: SIMETHICONE 80 MG CHEW PO SCH (13:59)
[2024-07-09] MEDS: METHYLERGONOVINE MALEATE 0.2 MG TAB PO SCH (14:01)
[2024-07-09] MEDS: PROMETHAZINE 6.25 MG/50.25 ML BAG IV PRN (14:49)
--- NOTE | 2024-07-09 15:29 | Anesthesiology Progress Note ---
Date of Service July 09, 2024 Anesthesia Post Procedure Vital Signs Vital Signs: Temp Pulse Pulse Resp BP BP Pulse Ox 07/09/24 14:17 36.4 C L 72 16 124/84 100 07/09/24 14:17 07/09/24 14:05 100 07/09/24 14:05 74 07/09/24 14:00 98 07/09/24 14:00 74 07/09/24 13:55 100 07/09/24 13:55 99 H 07/09/24 13:50 100 07/09/24 13:50 77 07/09/24 13:48 68 07/09/24 13:48 108/71 07/09/24 13:47 100 07/09/24 13:47 75 07/09/24 13:42 100 07/09/24 13:42 64 07/09/24 13:37 99 07/09/24 13:37 74 07/09/24 13:34 63 07/09/24 13:34 110/67 07/09/24 13:32 98 07/09/24 13:32 63 07/09/24 13:30 36.6 C 18 07/09/24 13:27 99 07/09/24 13:27 69 07/09/24 13:22 99 07/09/24 13:22 63 07/09/24 13:17 98 07/09/24 13:17 65 07/09/24 13:12 99 07/09/24 13:12 76 07/09/24 13:07 100 07/09/24 13:07 69 07/09/24 13:03 71 07/09/24 13:03 119/68 07/09/24 13:02 99 07/09/24 13:02 71 07/09/24 13:00 18 07/09/24 12:57 98 07/09/24 12:57 77 07/09/24 12:52 96 07/09/24 12:52 73 07/09/24 12:47 98 07/09/24 12:47 73 07/09/24 12:42 100 07/09/24 12:42 69 07/09/24 12:37 97 07/09/24 12:37 64 07/09/24 12:33 75 07/09/24 12:33 113/60 07/09/24 12:32 100 07/09/24 12:32 77 07/09/24 12:30 18 07/09/24 12:27 98 07/09/24 12:27 73 07/09/24 12:23 77 07/09/24 12:23 125/82 07/09/24 12:22 98 07/09/24 12:22 73 07/09/24 12:20 18 07/09/24 12:17 97 07/09/24 12:17 72 07/09/24 12:12 97 07/09/24 12:12 66 07/09/24 12:10 18 07/09/24 12:07 98 07/09/24 12:07 60 07/09/24 12:03 82 07/09/24 12:03 106/79 07/09/24 12:02 97 07/09/24 12:02 74 07/09/24 12:00 20 07/09/24 11:57 97 07/09/24 11:57 67 07/09/24 11:53 77 07/09/24 11:53 108/62 07/09/24 11:52 94 07/09/24 11:52 81 07/09/24 11:50 20 07/09/24 11:47 97 07/09/24 11:47 78 07/09/24 11:43 73 07/09/24 11:43 119/69 07/09/24 11:42 98 07/09/24 11:42 72 07/09/24 11:40 18 07/09/24 11:37 100 07/09/24 11:37 76 07/09/24 11:33 71 07/09/24 11:33 113/65 07/09/24 11:32 99 07/09/24 11:32 77 07/09/24 11:30 36.6 C 18 07/09/24 08:33 36.6 C 20 07/09/24 08:31 86 144/70 H Pulse Ox O2 Del Method O2 Del Method 07/09/24 14:17 Room Air 07/09/24 14:17 100 Room Air 07/09/24 14:05 07/09/24 14:05 07/09/24 14:00 07/09/24 14:00 07/09/24 13:55 07/09/24 13:55 07/09/24 13:50 07/09/24 13:50 07/09/24 13:48 07/09/24 13:48 07/09/24 13:47 07/09/24 13:47 07/09/24 13:42 07/09/24 13:42 07/09/24 13:37 07/09/24 13:37 07/09/24 13:34 07/09/24 13:34 07/09/24 13:32 07/09/24 13:32 07/09/24 13:30 07/09/24 13:27 07/09/24 13:27 07/09/24 13:22 07/09/24 13:22 07/09/24 13:17 07/09/24 13:17 07/09/24 13:12 07/09/24 13:12 07/09/24 13:07 07/09/24 13:07 07/09/24 13:03 07/09/24 13:03 07/09/24 13:02 07/09/24 13:02 07/09/24 13:00 07/09/24 12:57 07/09/24 12:57 07/09/24 12:52 07/09/24 12:52 07/09/24 12:47 07/09/24 12:47 07/09/24 12:42 07/09/24 12:42 07/09/24 12:37 07/09/24 12:37 07/09/24 12:33 07/09/24 12:33 07/09/24 12:32 07/09/24 12:32 07/09/24 12:30 07/09/24 12:27 07/09/24 12:27 07/09/24 12:23 07/09/24 12:23 07/09/24 12:22 07/09/24 12:22 07/09/24 12:20 07/09/24 12:17 07/09/24 12:17 07/09/24 12:12 07/09/24 12:12 07/09/24 12:10 07/09/24 12:07 07/09/24 12:07 07/09/24 12:03 07/09/24 12:03 07/09/24 12:02 07/09/24 12:02 07/09/24 12:00 07/09/24 11:57 07/09/24 11:57 07/09/24 11:53 07/09/24 11:53 07/09/24 11:52 07/09/24 11:52 07/09/24 11:50 07/09/24 11:47 07/09/24 11:47 07/09/24 11:43 07/09/24 11:43 07/09/24 11:42 07/09/24 11:42 07/09/24 11:40 07/09/24 11:37 07/09/24 11:37 07/09/24 11:33 07/09/24 11:33 07/09/24 11:32 07/09/24 11:32 07/09/24 11:30 07/09/24 08:33 07/09/24 08:31 Pain Intensity Lower Abdomen: Pain Intensity: 5 Notes Mental Status: alert / awake / arousable Patient Amnestic to Procedure: Yes Nausea / Vomiting: adequately controlled Pain: adequately controlled Airway Patency, RR, SpO2: stable & adequate BP & HR: stable & adequate Hydration State: stable & adequate Neuraxial Anesthesia: was administered and sensory block is resolving Anesthetic Complications: no major complications apparent
[2024-07-09] MEDS: ACETAMINOPHEN 325 MG TAB PO SCH (17:43)
[2024-07-09] MEDS: MEASLES, MUMPS & RUBELLA VIRUS VACCINE (MMR) 0.5ML VIAL SQ ONE (18:55)
[2024-07-09] MEDS: LACTATED RINGER'S 500 ML IV ONE (18:59)
[2024-07-09] MEDS: DOCUSATE SODIUM 100 MG CAP PO SCH (21:26)
[2024-07-10] MEDS ORDERED: Nursing to Pharmacy Communication SCH (01:45)
[2024-07-10] MEDS ORDERED: diphenhydrAMINE Capsule 25 MG CAP PO PRN (04:28)
[2024-07-10] MEDS ORDERED: ONDANSETRON INJ 2 MG/ML 2 ML VIAL IV PRN (04:28)
[2024-07-10] MEDS ORDERED: diphenhydrAMINE 50 MG/ML VIAL IV PRN (04:28)
[2024-07-10] MEDS ORDERED: PROMETHAZINE 12.5 MG/50.5 ML BAG IV PRN (04:28)
[2024-07-10] MEDS: IBUPROFEN 600 MG TAB PO PRN (06:23)
[2024-07-10 07:15] LABS: Basophils # (auto) 0.03 K/uL (0.00-0.20); Basophils % (auto) 0.2 %; Eosinophils # (auto) 0.05 K/uL (0.00-0.50); Eosinophils % (auto) 0.4 %; Hemoglobin 12.7 g/dl (12.0-16.0); Immature Granulocytes # (auto) 0.09 K/uL (0.01-0.20); Immature Granulocytes % (auto) 0.7 %; Lymphocytes % (auto) 7.3 %; Mean Corpuscular Hemoglobin 29.7 pg (25.0-34.0); Mean Corpuscular Hgb Conc 34.3 g/dL (32.0-36.0); Mean Corpuscular Volume 86.4 fL (80.0-100.0); Mean Platelet Volume 9.9 fL (9.4-12.4); Monocytes % (auto) 5.8 %; Neutrophils # (auto) 11.79 K/uL (1.40-6.50); Neutrophils % (auto) 85.6 %; Platelet Count 174 K/uL (130-400); RDW Coefficient of Variation 13.1 % (11.5-14.5); RDW Standard Deviation 40.5 fL (36.4-46.3); Red Blood Count 4.28 M/uL (4.20-5.40); White Blood Count 13.76 K/ul (4.8-10.8)
--- NOTE | 2024-07-10 07:43 | Obstetrical Progress Note ---
Date of Service July 10, 2024 Assessment & Plan Admission and Anticipated Discharge Date Admission Date: July 09, 2024 Subjective Patient is seen and examined. She feels well, no complaints. Pain is under control with oral meds. Ambulating without dizziness Voiding without difficulty Tolerating regular diet with out N&V Flatus neg Bleeding is minimal No fever/ chills/ CP/ SOB/ N&V/ Leg pain Breast feeding without problems Vital Signs Temp Pulse Resp BP Pulse Ox O2 Del Method 07/10/24 04:45 36.5 C 73 16 123/73 100 Room Air 07/10/24 04:00 16 100 07/10/24 03:00 18 95 07/10/24 02:00 16 99 07/10/24 01:00 36.6 C 82 18 112/73 100 Room Air 07/10/24 01:00 16 100 07/10/24 00:00 18 99 07/09/24 23:00 16 95 07/09/24 22:00 18 95 07/09/24 21:00 18 99 07/09/24 20:30 36.6 C 83 18 125/72 99 Room Air 07/09/24 20:30 Room Air 07/09/24 20:00 18 99 Lab Results 07/09/24 07/10/24 Range/Units 08:48 06:37 WBC 7.88 13.76 H (4.8-10.8) K/ul RBC 4.44 4.28 (4.20-5.40) M/uL Hgb 13.2 12.7 (12.0-16.0) g/dl Hct 37.7 37.0 (37.0-47.0) % MCV 84.9 86.4 (80.0-100.0) fL MCH 29.7 29.7 (25.0-34.0) pg MCHC 35.0 34.3 (32.0-36.0) g/dL RDW Std Deviation 39.1 40.5 (36.4-46.3) fL RDW Coeff of Merissa 12.9 13.1 (11.5-14.5) % Plt Count 198 174 (130-400) K/uL MPV 10.3 9.9 (9.4-12.4) fL Immature Gran % (Auto) 0.7 % Neut % (Auto) 85.6 % Lymph % (Auto) 7.3 % [place] % (Auto) 5.8 % Eos % (Auto) 0.4 % Baso % (Auto) 0.2 % Neut # (Auto) 11.79 H (1.40-6.50) K/uL Lymph # (Auto) 1.00 L (1.20-3.40) K/uL [place] # (Auto) 0.80 H (0.11-0.59) K/uL Eos # (Auto) 0.05 (0.00-0.50) K/uL Baso # (Auto) 0.03 (0.00-0.20) K/uL Immature Gran # (Auto) 0.09 (0.01-0.20) K/uL Sodium 134 L (136-145) mmol/L Potassium 4.2 (3.5-5.1) mmol/L Chloride 106 (98-107) mmol/L Carbon Dioxide 19 L (21-32) mmol/L Anion Gap 9 (3-11) BUN 9 (6-23) mg/dl Creatinine 0.71 (0.6-1.2) mg/dl Est Cr Clr Drug Dosing 133.7 ml/min eGFR 119.44 BUN/Creatinine Ratio 12.7 (10-20) Glucose 90 (70-99(Fasting)) mg/dl Calcium 9.1 (8.6-10.3) mg/dl Total Bilirubin 0.8 (0.2-1.0) mg/dl AST 12 L (13-39) U/L ALT 12 (7-52) U/L Alkaline Phosphatase 146 H (34-104) U/L Total Protein 6.5 (6.0-8.3) gm/dl Albumin 3.5 (3.4-5.0) gm/dl Globulin 3.0 (2.5-4.0) gm/dl Albumin/Globulin Ratio 1.2 (0.9-2) Blood Type A Negative Antibody Screen NEGATIVE Crossmatch See Detail PE: General: Alert, orientedx3, NAD CVS: S1S2 RRR Lungs; CTAB Abd: soft, NT, ND, BS+, fundus firm, below Umbilicus Incision: Clean, dry, intact Perineum intact, Lochia rubra minimal Ext; NT, no edema AP: 28 yo s/p C Section, pod# 1 VSS Afebrile doing well Continue routine postop care Encourage ambulation, PO intake All questions were answered D/C home tomorrow Results & Data Vital Signs (Past 12 Hours) Vital Signs Temp Pulse Resp BP Pulse Ox O2 Del Method 07/10/24 04:45 36.5 C 73 16 123/73 100 Room Air 07/10/24 04:00 16 100 07/10/24 03:00 18 95 07/10/24 02:00 16 99 07/10/24 01:00 36.6 C 82 18 112/73 100 Room Air 07/10/24 01:00 16 100 07/10/24 00:00 18 99 07/09/24 23:00 16 95 07/09/24 22:00 18 95 07/09/24 21:00 18 99 07/09/24 20:30 36.6 C 83 18 125/72 99 Room Air 07/09/24 20:30 Room Air 07/09/24 20:00 18 99
[2024-07-10] MEDS: PRENATAL VITAMIN 1 TAB PO SCH (10:05)
[2024-07-10] MEDS: FERROUS SULFATE 325 MG TAB PO SCH (10:06)
[2024-07-10] MEDS: ENOXAPARIN INJ 40 MG/0.4 ML SYR SQ SCH (11:06)
[2024-07-10] MEDS ORDERED: IBUPROFEN 600 MG TAB PO SCH (12:00)
[2024-07-10] MEDS: traMADol HCL 50 MG TABLET PO PRN (14:23)
[2024-07-10] MEDS: LACTATED RINGER'S 1,000 ML IV SCH ×2 (19:44→19:45)
[2024-07-10] MEDS: DC INTRASPINAL MORPHINE ONE (19:45)
[2024-07-10] MEDS: MoRPHine SULFATE PF 1 MG/ML 10 ML AMP/VIAL INT SPINAL ONE (19:45)
[2024-07-10] MEDS: DIPHTHER/TETAN/PERTUS Vaccine (Tdap, Adol/Adult) 0.5mL IM ONE (19:47)
[2024-07-10] MEDS: bisacodyL 5 MG TABEC PO SCH (20:20)
[2024-07-10 22:39] VITALS: RESP 18
[2024-07-11 07:02] LABS: Hematocrit (blood only) 32.3 % (37.0-47.0)
[2024-07-11] MEDS: MAGNESIUM HYDROXIDE SUSP 30 ML UDC PO PRN (09:01)
[2024-07-11] MEDS ORDERED: ACETAMINOPHEN 325 MG TAB PO PRN (10:02)
--- NOTE | 2024-07-11 10:47 | Obstetrical Progress Note ---
Date of Service July 11, 2024 Assessment & Plan Admission and Anticipated Discharge Date Admission Date: July 09, 2024 Subjective abdomen soft and non tender no calf tenderness ambulating well incision is clean and dry vaginal bleeding scant hgb 11.1 Results & Data Vital Signs (Past 12 Hours) Vital Signs Temp Pulse Resp BP Pulse Ox O2 Del Method 07/11/24 01:15 36.6 C 73 18 115/73 99 Room Air
[2024-07-11] MEDS ORDERED: bisacodyL 10 MG SUPP PR PRN (11:54)
[2024-07-11 13:07] VITALS: BP 118/71; PULSE 82; TEMP 98.1; O2SAT 97
[2024-07-14] MEDS ORDERED: KETOROLAC 30 MG/ML VIAL IV PRN (10:28)
== END 2024-07-11 15:10 | disposition home or self-care (01) | DRG 788 ==
LOC: OPB 08:24 → 4S1 08:27 → 4E2 14:27